=== PATIENT | female | born 1955 | race Caucasian/White ===

== ENCOUNTER 2016-11-11 08:48 | Outpatient (CLI) | payer OTHER ==
--- NOTE | 2016-11-12 08:19 | DEXA Report ---
DEXA SCAN: 11/11/2016 CLINICAL HISTORY: Postmenopausal. TECHNIQUE: Dual energy x-ray absorptiometry (DXA) was performed on a [employer] system. Regions measured are the AP spine, femoral neck, and, if needed, forearm. COMPARISON: None. In accordance with the International Society for Clinical Densitometry (ISCD) guidelines, data from previous exams may be reanalyzed using current recommendations and techniques. This is done to allow a more accurate basis for comparison with the current study. FINDINGS: The data for the lumbar spine is as follows: REGION BMD (g/cm/cm) T-SCORE Z-SCORE L1 0.962 -1.4 0.0 L2 1.155 -0.4 1.0 L3 1.284 0.7 2.1 L4 1.350 1.2 2.6 TOTAL 1.201 0.2 1.5 NOTE: All evaluable vertebrae are used for classification. The data for the hip is as follows: REGION BMD (g/cm/cm) T-SCORE Z-SCORE Neck 0.907 -0.9 0.4 TOTAL 1.024 0.1 1.2 NOTE: The femoral neck or total proximal femur, whichever is lowest, is used for classification. IMPRESSION: L1 THROUGH L4 T-SCORE IS 0.2. THIS IS WITHIN NORMAL LIMITS ACCORDING TO THE WORLD HEALTH ORGANIZATION GUIDELINES. THE FEMORAL NECK T-SCORE IS -0.9. THIS IS WITHIN NORMAL LIMITS ACCORDING TO THE WORLD HEALTH ORGANIZATION GUIDELINES. THE TOTAL HIP T-SCORE IS 0.1. THIS IS WITHIN NORMAL LIMITS ACCORDING TO THE WORLD HEALTH ORGANIZATION GUIDELINES. THE WHO CLASSIFICATION BASED ON THE INTERNATIONAL REFERENCE STANDARD IS NORMAL. THE PATIENT HAS NO INCREASED FRACTURE RISK. RECOMMENDATION: Patients with diagnosis of osteoporosis or osteopenia should have regular bone mineral density assessment. For those eligible for Medicare, routine testing is allowed once every 2 years. Testing frequency can be increased for patients who have rapidly progressing disease or for those who are receiving medical therapy to restore bone mass. COMMENT: World Health Organization (WHO) definitions for osteoporosis and osteopenia: NORMAL BMD: T-score at -1.0 or higher, fracture risk is low. OSTEOPENIA BMD: T-score between -1.0 and -2.5, fracture risk is increased. OSTEOPOROSIS BMD: T-score at -2.5 or lower, fracture risk high. National Osteoporosis Foundation recommends: 1. Obtain adequate dietary calcium (at least 1200 mg per day) and vitamin D (400 -800 international units per day). 2. Participate, as appropriate, in regular weightbearing and muscle- strengthening exercise. 3. Avoid tobacco use and reduce alcohol and caffeine intake. 4. For more detailed information see the website at www.NOF.org. MTDD
== END 2016-11-11 08:49 | disposition home or self-care (01) ==
LOC: DI 08:48
PROVIDERS: ATTEND Nurse Practitioner Primary Care
DX: Z78.0 Asymptomatic menopausal state (principal)
CPT/HCPCS: 77080

== ENCOUNTER 2016-11-11 08:49 | Outpatient (CLI) | payer OTHER ==
--- NOTE | 2016-11-12 08:44 | Mammography Report ---
DIGITAL BILATERAL SCREENING MAMMOGRAM: 11/11/2016 CLINICAL HISTORY: A 61-year-old female in for routine screening mammogram. Patient has no family hi story of breast cancer. Patient has had no prior breast surgeries. COMPARISON: 02/14/2008, 04/30/2009, 03/06/2014 TECHNIQUE: Craniocaudad and oblique lateral views of each breast were obtained with [facility] digital mammography. To compliment the exam, axillary exaggerated craniocaudad views of both neela sts were obtained. FINDINGS: Heterogeneously dense breasts are noted bilaterally. No significant clusters of calcifica tion are seen. No significant masses are noted. No significant change is seen. IMPRESSION: BREASTS APPEAR RADIOGRAPHICALLY BENIGN. BIRADS CATEGORY 1 - NEGATIVE. RECOMMENDATIONS: Annual bilateral screening mammography. STANDARD QUALIFYING STATEMENTS 1. This examination was reviewed with the aid of Computer-Aided Detection (CAD). 2. A negative or benign imaging report should not delay biopsy if clinically suspicious findings are present. Consider surgical consultation if warranted. More than 5% of cancers are not identified by i maging. 3. Dense breasts may obscure an underlying neoplasm. JOB #: [id number] EXT JOB #:[id number]
== END 2016-11-11 08:50 | disposition home or self-care (01) ==
LOC: DI 08:49
PROVIDERS: ATTEND Nurse Practitioner Primary Care
DX: Z12.31 Encounter for screening mammogram for malignant neoplasm of breast (principal)
CPT/HCPCS: 77067

== ENCOUNTER 2017-10-11 16:39 | Outpatient (CLI) | payer OTHER ==
[2017-10-11 18:05] LABS: ALBUMIN 4.3 g/dL (3.2-5.5); ALBUMIN/GLOBULIN RATIO 1.4 (1.0-2.2); BILIRUBIN,TOTAL 0.6 mg/dL (0.2-1.0); CALCIUM 9.8 mg/dL (8.5-10.3); CREATININE 0.8 mg/dL (0.4-1.0); TOTAL PROTEIN 7.4 g/dL (6.7-8.2)
[2017-10-11 18:41] LABS: BASOPHILS # (AUTO) 0.1 10^3/uL (0.0-0.1); BASOPHILS % (AUTO) 0.7 %; EOSINOPHILS # (AUTO) 0.2 10^3/uL (0.0-0.7); EOSINOPHILS % (AUTO) 3.5 %; HGB - HEMOGLOBIN 12.7 g/dL (12.0-16.0); LYMPHOCYTES # (AUTO) 1.1 10^3/uL (1.5-3.5); LYMPHOCYTES % (AUTO) 16.1 %; MEAN CORPUSCULAR HEMOGLOBIN 28.9 pg (27.0-31.0); MEAN CORPUSCULAR HGB CONC 32.7 g/dL (32.0-36.0); MEAN CORPUSCULAR VOLUME 88.5 fL (81.0-99.0); MEAN PLATELET VOLUME 10.7 fL (7.9-10.8); MONOCYTES # (AUTO) 0.5 10^3/uL (0.0-1.0); NEUTROPHILS # (AUTO) 5.2 10^3/uL (1.5-6.6); NEUTROPHILS % (AUTO) 72.7 %; PLT - PLATELET COUNT 172 10^3/uL (130-450); RED BLOOD COUNT 4.39 10^6/uL (4.20-5.40); RED CELL DISTRIBUTION WIDTH 13.3 % (12.0-15.0); WHITE BLOOD COUNT 7.1 x10^3/uL (4.8-10.8)
== END 2017-10-11 23:59 ==
LOC: LAB.R 16:39
PROVIDERS: ATTEND Internal Medicine
DX: R10.13 Epigastric pain (principal)
CPT/HCPCS: 80053; 83690; 85025

== ENCOUNTER 2017-10-13 14:58 | Outpatient (CLI) | payer OTHER ==
--- NOTE | 2017-10-13 17:36 | Ultrasound Report ---
EXAM: ABDOMEN ULTRASOUND EXAM DATE: 10/13/2017 03:44 PM. CLINICAL HISTORY: Abnormal liver function tests, epigastric pain. COMPARISON: Pelvic ultrasound 09/22/2013. TECHNIQUE: Real-time scanning was performed with static images obtained. FINDINGS: Liver: Normal size with mild diffusely increased hepatic echogenicity suggesting steatosis 13.8 cm. M ain portal vein flow: Hepatopetal. -There are numerous circumscribed ovoid lesions throughout the liver which are relatively hypoechoic compared to the background parenchyma, though background parenchymal echotexture is increased. The la rgest in the left lobe measures 2.0 x 1.9 x 2.1 cm. The largest in the right lobe measures 2.9 x 1.9 x 2.7 cm. Gallbladder: No stones or wall thickening. No sonographic Amin's sign. There is a 2 mm polyp, which given its small size is almost certainly benign and does not warrant imaging follow-up. Biliary System: Common bile duct measures 3.4 mm. No intrahepatic or extrahepatic ductal dilatation. Pancreas: There is a relatively hypoechoic ovoid mass in the region of the pancreatic tail measuring 2.7 x 3.2 x 2.7 cm. The remainder of the visualized pancreas is unremarkable. Kidneys: Right: 11.3 cm longitudinally. Normal. No contour-deforming mass, stones, or hydronephrosis. Left: 10.8 cm longitudinally. No calculi or hydronephrosis. There is a small cyst with a probable pun ctate internal calcification in the interpolar region measuring 8 mm. Spleen: 11.7 cm. Normal in size and echotexture. There is an ovoid mass in the region of the splenic hilum, possibly arising from the pancreatic tail measuring 2.7 x 3.2 x 2.7 cm, as detailed above. Aorta and Inferior Vena Cava: Unremarkable. Other: None. IMPRESSION: 1. Findings suspicious for hepatic metastases, with relatively hypoechoic ovoid lesions present withi n both lobes measuring up to 2.9 cm. Hepatic findings are also suggestive of background hepatic steat osis. 2. Soft tissue nodule in the region of the splenic hilum, possibly arising from the pancreatic tail a nd could represent primary pancreatic adenocarcinoma, though not definitive. Recommend CT of the abdo men and pelvis with contrast for further evaluation of the liver and splenic hilum/possible pancreati c tail lesion with more specific imaging likely to follow. 3. Minimally complex subcentimeter cyst in the left mid kidney. RADIA The above findings were discussed with Flaquito Jimenez by Dr. Kostas Tyler at 17:22 hrs on 10/13/17. Referring Provider Line: [phone] SITE ID: [id number]
== END 2017-10-13 14:59 | disposition home or self-care (01) ==
LOC: DI 14:58
PROVIDERS: ATTEND Internal Medicine
DX: R10.13 Epigastric pain (principal); R94.5 Abnormal results of liver function studies
CPT/HCPCS: 76700

== ENCOUNTER 2017-10-14 10:41 | Outpatient (CLI) | payer OTHER ==
[2017-10-14] MEDS ORDERED: IOPAMIDOL-300 50 ML VIAL ONE (10:57)
[2017-10-14] MEDS ORDERED: IOPAMIDOL-300 100 ML VIAL ONE (10:57)
--- NOTE | 2017-10-14 16:48 | CT Report ---
CT ABDOMEN AND PELVIS WITH CONTRAST: 10/14/2017 CLINICAL INDICATION: Hepatic masses, pancreatic lesion. TECHNIQUE: Axial CT images of the abdomen and pelvis were obtained following 100 mL Isovue 300 as well as oral contrast, with images of the pancreas obtained in early arterial and portal venous phases. COMPARISON: Ultrasound abdomen 10/13/2017, ultrasound pelvis 09/22/2013. FINDINGS LUNGS: Limited evaluation of the lung bases is unremarkable. ABDOMEN: The liver contains multiple hypodense lesions, measuring up to 2 cm in diameter, compatible with metastases. There is a 3.3 x 3.3 x 3.2 cm mass in the tail of the pancreas, with direct extension into the splenic hilum. The gallbladder is not dilated. The kidneys and adrenal glands appear unremarkable. No bowel dilatation, free gas, or free fluid is present. No abdominal adenopathy is appreciated. PELVIS: 8 cm leiomyoma in the uterus is unchanged from previous ultrasound. Sigmoid diverticulosis is present, without CT evidence of diverticulitis. The appendix is seen in the right lower quadrant, and is normal in caliber. No pelvic adenopathy or free fluid is present. Osseous structures demonstrate degenerative changes. IMPRESSION 1. A 3.3 CM MASS IN THE TAIL OF THE PANCREAS, WITH INNUMERABLE HYPODENSE LIVER LESIONS, COMPATIBLE WITH METASTASES. 2. STABLE LEIOMYOMA IN THE UTERUS. Results called to Dr. Jimenez on 10/14/2017 at 12:15 p.m. TD: 10/14/2017 12:25
[2017-10-19] MEDS ORDERED: IOPAMIDOL-300 100 ML VIAL IVP ONE (07:57)
[2017-10-19] MEDS ORDERED: IOPAMIDOL-300 50 ML VIAL PO ONE (07:57)
== END 2017-10-14 10:42 | disposition home or self-care (01) ==
LOC: DI 10:41
PROVIDERS: ATTEND Internal Medicine
DX: K86.9 Disease of pancreas, unspecified (principal); K76.9 Liver disease, unspecified
CPT/HCPCS: 74177; Q9967

== ENCOUNTER 2017-10-15 09:48 | Outpatient (CLI) | payer OTHER | END 2017-10-15 09:49 | disposition home or self-care (01) | LOC: LAB 09:48 | PROVIDERS: ATTEND Internal Medicine | DX: K86.9 Disease of pancreas, unspecified (principal) | CPT/HCPCS: 36415; 86301 ==